=== PATIENT | female | born 1955 | race African-American/Black ===

== ENCOUNTER 2017-02-10 11:31 | Emergency (ER) | payer OTHER ==
--- NOTE | ~2017-02-10 | CR172 ---
[facility] A Service of [facility] & [facility] RADIOLOGY TEXT RESULTS PATIENT: JANE MILLS LOCATION: CFTX : 51 UNIT #: [id number] AGE: [address]: Adal Ramirez SEX: F ORDER DR: [id number] [facility] [address] [place], [place] [address] [id number] MR#: [id number] Acc #: [id number] NAME: JANE MILLS : 1955 SEX: F STUDY DATE/TIME: 02/10/2017 13:28 UNIT: CFOK ROOM: STUDY DESCRIPTION: CR Knee 3 Views Lt Attending Physician: Dustin Ramirez Ordering Physician: Dustin Ramirez Primary Care Physician: Sara Hunt A.P.R.N. MEDICAL IMAGING REPORT This report is preliminary unless electronic signature is present EXAM Left knee. INDICATIONS Left knee pain since 9 o'clock last night, after fall. FINDINGS AP, lateral and sunrise views of left knee were obtained. There is lateral spurring from the patellofemoral joint. There is mild joint space narrowing bilaterally. There is some spurring from the lateral tibial plateau and femoral condyle. No fracture or effusion is visible. 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 No fracture or effusion is visible. Dictated by... Tunde Eduardo M.D. THIS IS AN ELECTRONICALLY VERIFIED REPORT Tunde Eduardo M.D. at 02/11/2017 6:27 AM GONZALES/armando TD: 02/10/2017 16:34 JOB #: [id number] MEDICAL IMAGING REPORT Page 1 of 1 COPY
[~2017-02-10 11:31] MED LIST: CRESTOR10 MG PO; GLUCOPHAGE500 MG PO; MONTELUKAST SOD10 MG PO; OMEPRAZOLE40 M1 PO; TEMOVATE 0.05%15 GM EXT; VALACYCLOVIR500 MG PO; VITAMIN D250000 UNIT PO; [UNRECOGNIZED DRUG - OTHER] TP
== END 2017-02-10 14:25 | disposition home or self-care (01) ==
LOC: CED 11:31 → CFTX 11:31 → CED 11:32 → CFTX 13:19
DX: S80.02XA Contusion of left knee, initial encounter (principal); M17.12 Unilateral primary osteoarthritis, left knee; E11.9 Type 2 diabetes mellitus without complications; E78.00 Pure hypercholesterolemia, unspecified; K21.9 Gastro-esophageal reflux disease without esophagitis; Z79.84 Long term (current) use of oral hypoglycemic drugs; Z79.899 Other long term (current) drug therapy; Z88.2 Allergy status to sulfonamides; Z88.5 Allergy status to narcotic agent; W01.0XXA Fall on same level from slipping, tripping and stumbling without subsequent striking against object, initial encounter
CPT/HCPCS: 29530; 73562; 99283